=== PATIENT | male | born 1970 | race Two or more races ===

== ENCOUNTER 2022-09-30 09:15 | Inpatient (IN) | payer OTHER ==
[~2022-09-30] VITALS: Ht 172.7 cm; Wt 86.2 kg
[2022-09-30] MEDS ORDERED: ACID REDUCER20 M1 PO (11:40)
[2022-10-03] MEDS ORDERED: OMEPRAZOLE20 MG (14:47)
[2022-10-03] MEDS ORDERED: MESALAMINE800 MG (14:47)
== END 2022-10-06 11:33 | disposition home or self-care (01) | DRG 329 ==
LOC: SURH 10-03 05:48 → O/R 10-03 05:48 → SURH 10-03 09:15
PROVIDERS: ADMIT Colon & Rectal Surgery; ATTEND Colon & Rectal Surgery
PROC: 0DBP4ZZ Excision of Rectum, Percutaneous Endoscopic Approach (ICD-10-PCS; 2022-10-03)
PROC: 0WQF4ZZ Repair Abdominal Wall, Percutaneous Endoscopic Approach (ICD-10-PCS; 2022-10-03)
PROC: 0DJD8ZZ Inspection of Lower Intestinal Tract, Via Natural or Artificial Opening Endoscopic (ICD-10-PCS; 2022-10-03)
PROC: 0W9G4ZZ Drainage of Peritoneal Cavity, Percutaneous Endoscopic Approach (ICD-10-PCS; 2022-10-03)
PROC: 0DTN4ZZ Resection of Sigmoid Colon, Percutaneous Endoscopic Approach (ICD-10-PCS; principal; 2022-10-03 09:30)
DX: K57.20 Diverticulitis of large intestine with perforation and abscess without bleeding (principal); K65.1 Peritoneal abscess; K43.9 Ventral hernia without obstruction or gangrene; K63.89 Other specified diseases of intestine

== ENCOUNTER 2022-10-01 09:46 | Emergency (ER) | payer OTHER ==
[~2022-10-01] VITALS: Ht 172.7 cm; Wt 86.2 kg
[~2022-10-01 09:46] MED LIST: ACID REDUCER20 M1 PO
== END 2022-10-01 17:45 | disposition home or self-care (01) ==
LOC: ER 09:46
DX: K57.32 Diverticulitis of large intestine without perforation or abscess without bleeding (principal); Z20.822 Contact with and (suspected) exposure to COVID-19